=== PATIENT | female | born 1955 | race Caucasian/White ===

== ENCOUNTER 2017-05-26 10:04 | Emergency (ER) | payer MEDICARE, MEDICAID ==
[~2017-05-26] VITALS: Ht 149.9 cm; Wt 71.4 kg
[~2017-05-26 10:04] MED LIST: CYCL5TAB PO; DICL75 PO; LORT5TAB PO; METH10TA PO; METHO500 PO
[2017-05-26 10:10] VITALS: BP 129/64; PULSE 68; RESP 16; TEMP 98.7; O2SAT 94
[2017-05-26] MEDS ORDERED: METH40TA2 PO (10:23)
[2017-05-26] MEDS ORDERED: IBUP1TAB7 PO (10:31)
--- NOTE | 2017-05-26 10:31 | PD ---
HPI Chief Complaint: Musculoskeletal Complaint Time Seen by Provider: 10:19 Travel History International Travel<30 days: No Contact w/Intl Traveler<30days: No Traveled to known affect area: No History of Present Illness HPI 61-year-old female here for evaluation of left shoulder swelling. Patient reports only mild discomfort within the shoulder. She reports a history of intermittent swelling over the last several years. She has a history of severe arthritis within the joint and has had previous arthroscopy in 2001. She denies fever or chills. Her son who was present but she should be evaluated today because the swelling looks more severe than in the past. She denies any recent injury to the area. PFSH Past Medical History Arthritis: Yes (RA) Heart Rhythm Problems: No Cardiovascular Problems: Yes (MITRAL VALVE PROLAPSE) High Cholesterol: No Chest Pain: Yes COPD: Yes Diminished Hearing: No Fibromyalgia: Yes Hypertension: No Myocardial Infarction: No PNEUMOCCOCAL Vaccine (Year): 2 ?: Not Ovarian Cysts: Yes Past Surgical History Hysterectomy: Yes Social History Alcohol Use: No Tobacco Use: Yes (1 PPD) Substance Use: No Allergies-Medications (Allergen,Severity, Reaction): Coded Allergies: azithromycin (Unverified Allergy, Mild, SWELLING/RASH HIVES, 05/26/17) codeine (Unverified Allergy, Mild, NAUSEA, 05/26/17) diazepam (Unverified Allergy, Mild, NAUSEA, 05/26/17) erythromycin base (Unverified Allergy, Mild, SWELLING/RASH HIVES, 05/26/17 ) Reported Meds & Prescriptions Reported Meds & Active Scripts Active Robaxin 500 Mg Tab (Methocarbamol) 500 Mg Tab 500 Mg PO QID PRN Diclofenac Sodium 75 Mg Tab 75 Mg PO BID 10 Days Reported Flexeril (Cyclobenzaprine HCl) 5 Mg Tab 0 PO UNKNOWN DOSE Lortab 5/500 (Acetaminophen/Hydrocodone Bitart) 5 Mg/500 Mg Tab 0 PO UNKNOWN DOSE Methadone Hcl (Methadone HCl) 10 Mg Tab 20 Mg PO TID Review of Systems Except as stated in HPI: all other systems reviewed are Neg General / Constitutional: No: Fever Physical Exam Narrative GENERAL: Well-nourished, well-developed patient. SKIN: Focused skin assessment warm/dry. HEAD: Normocephalic. EYES: No scleral icterus. No injection or drainage. NECK: Supple, trachea midline. No JVD or lymphadenopathy. CARDIOVASCULAR: Regular rate and rhythm without murmurs, gallops, or rubs. RESPIRATORY: Breath sounds equal bilaterally. No accessory muscle use. GASTROINTESTINAL: Abdomen soft, non-tender, nondistended. MUSCULOSKELETAL: No cyanosis, or edema. Left shoulder: Notable swelling to the anterior/lateral aspect of the shoulder consistent with bursitis. No overlying erythema or warmth. No bony point tenderness. Patient is able to fully rotate the shoulder without difficulty. 2+ brachial and radial pulses. Brisk cap refill. Normal sensation reported in the extremity. Data Data Last Documented VS Vital Signs Date Time Temp Pulse Resp B/P (MAP) Pulse Ox O2 Delivery O2 Flow Rate FiO2 05/26/17 10:10 98.7 68 16 129/64 (85) 94 MDM Medical Decision Making Medical Screen Exam Complete: Yes Emergency Medical Condition: Yes Differential Diagnosis Bursitis, tendinitis, arthralgia, clinically unlikely septic arthritis Narrative Course 7-year-old female with known history of severe arthritis and left shoulder presents for evaluation of swelling to the left shoulder. She reports a history of intermittent swelling over the last several years. Patient underwent a arthroscopy of the left shoulder in 2001. She denies fever, chills or injury to the site. She reports symptoms improvement in the past with NSAIDs and immobilization. Patient had x-ray and 2016 which showed severe arthritis within the joint. I do not feel imaging is necessary at this visit. She will be given a sling put back on NSAIDs and instructed to follow-up with her orthopedic surgeon. She agrees to this plan Diagnosis Primary Impression: Bursitis of left shoulder Referrals: Ozzie Sheriff MD Orthopedist Additional Instructions: Immobilized left arm by using the sling for one week. Take the Motrin as directed. Make an appointment for follow-up with her orthopedic surgeon. Return to the emergency department if he developed new symptoms such as fever, severe pain, redness or swelling of the joint. Scripts Ibuprofen (Ibuprofen) 800 Mg Tab 800 MG PO Q6HR Y for PAIN, #40 TAB 0 Refills Prov: XanderchhayaSheba KING 05/26/17 Disposition: 01 DISCHARGE HOME Condition: Stable Sheba Jim May 26, 2017 10:31
== END 2017-05-26 11:11 | disposition home or self-care (01) ==
LOC: PHED 10:04
DX: M75.52 Bursitis of left shoulder (principal); F17.210 Nicotine dependence, cigarettes, uncomplicated
CPT/HCPCS: 99283